=== PATIENT | female | born 1955 | race African-American/Black ===

== ENCOUNTER 2017-03-26 18:50 | Inpatient (IN) | payer MEDICARE ==
[~2017-03-26] VITALS: Ht 157.5 cm; Wt 84.2 kg
[~2017-03-26 18:50] MED LIST: ALPHAGAN P0.1 % OU; AMLODIPINE5 MG PO; ASPIRIN EC81 MG PO; ASPIRIN81 MG OR; ATENOLOL50 MG PO; BACTRIM DS1 TAB PO; BENICAR20 MG PO; CIPROFLOXACN500 MG PO; CLEOCIN150 MG OR; CLOPIDOGREL75 MG PO; CRESTOR20 MG PO; CYCLOBENZAPR10 MG PO; FISH OIL1000 MG PO; FLEXERIL OR; FLEXERIL PO; GABAPENTIN300 MG PO; GLIPIZIDE ER5 MG OR; GLUCOPHAGE1000 MG OR; GLYBURIDE5 MG OR; GLYBURIDE5 MG PO; LANTUS100 MG/ML SC; LEVEMIR1000 UNITS SC; LIPITOR40 MG OR; LISINOPRIL10 MG; LISINOPRIL10 MG OR; LISINOPRIL20 MG PO; LORTAB 7.5-3251 TAB PO; LORTAB5 PO; LOSARTAN POT50 MG PO; LOSARTAN POTASS50 MG PO; LOVASTATIN40 MG OR; METFORMIN500 M1 PO; METFORMIN500 MG PO; NAPROSYN500 MG PO; NOVOLOG100 IU/1 M SC; OMEGA-3 FISH1000 MG PO; OMEPRAZOLE20 M1 PO; OMEPRAZOLE20 MG PO; ONDANSETRON4 MG PO; PANTOPRAZOLE SO40 MG PO; PLETAL100 MG PO; PRAVACHOL20 MG PO; PRAVASTATIN20 MG PO; PREVACID30 M1 PO; SIMVASTATIN80 MG OR; SULFAMETHOXAZOL1 TA1 PO; TORADOL PO; TRAMADOL HCL50 MG PO; TRESIBA FL100 UNIT/M SC; ULTRAM50 M1 PO; WARFARIN5 MG PO; ZETIA10 MG OR; ZITHROMAX250 MG PO; ZOFRAN ODT4 MG PO; ZOFRAN4 MG/TAB PO
[2017-03-26] MEDS ORDERED: LANTUS100 UNIT/M SC (19:03)
[2017-03-26 19:51] LABS: HEMATOCRIT 41.8 % (37.0-47.0); HEMOGLOBIN 14.1 g/dl (12.0-16.0); IMMATURE GRANULOCYTES 0.4 % (0.0-1.0); MEAN CELL VOLUME 90.9 fL CALC (80.0-100.0); MEAN CORPUSCULAR HGB 30.7 pG CALC (26.0-32.0); MEAN CORPUSCULAR HGB CONC 33.7 g/L CALC (32.0-36.0); NEUT# 7.92 thou/uL (2.00-7.15); RED BLOOD COUNT 4.6 mill/uL (4.20-5.60); RED CELL DISTRI WIDTH 12.6 % (11.5-15.5)
[2017-03-26 20:04] LABS: ALBUMIN 4.3 g/dL (3.2-5.0); BILIRUBIN, TOTAL 0.6 mg/dL (0.0-1.4); CALCIUM 9.5 mg/dL (8.4-10.2); CREATININE 1.2 mg/dL (0.5-1.0); POTASSIUM 4.9 mmol/l (3.5-5.1)
[2017-03-26 21:20] VITALS: BP 161/80
[2017-03-27 03:50] VITALS: BP 152/81
[2017-03-27 05:28] LABS: ANION GAP 14 (6-22 (CALC)); BUN 16 mg/dL (8-23); BUN/CREATININE RATIO 20 (12-20 (CALC)); CALCIUM 9.1 mg/dL (8.4-10.2); CARBON DIOXIDE 22 mmol/l (22-30); CHLORIDE 106 mmol/l (95-108); CREATININE 0.8 mg/dL (0.5-1.0); GFR > 60 ML/MIN (>=60 (CALC)); GFR FOR AFR.AMER. > 60 ML/MIN (>=60 (CALC)); GLUCOSE 222 mg/dL (82-115); POTASSIUM 4.5 mmol/l (3.5-5.1); SODIUM 137 mmol/l (137-146)
[2017-03-27 05:34] LABS: HEMATOCRIT 38.3 % (37.0-47.0); HEMOGLOBIN 12.7 g/dl (12.0-16.0); IMMATURE GRANULOCYTES 0.3 % (0.0-1.0); MEAN CELL VOLUME 92.1 fL CALC (80.0-100.0); MEAN CORPUSCULAR HGB 30.5 pG CALC (26.0-32.0); MEAN CORPUSCULAR HGB CONC 33.2 g/L CALC (32.0-36.0); NEUT# 6.21 thou/uL (2.00-7.15); RED BLOOD COUNT 4.16 mill/uL (4.20-5.60); RED CELL DISTRI WIDTH 12.5 % (11.5-15.5)
[2017-03-27 07:36] VITALS: BP 169/65
[2017-03-27 10:24] LABS: CHOLESTEROL HDL RATIO 4.5 (<4.4 (CALC))
[2017-03-27 10:57] LABS: URINE BILIRUBIN - DIPSTICK NEGATIVE (NEGATIVE); URINE BLOOD DIPSTICK TRACE-INTACT (NEGATIVE); URINE COLOR YELLOW; URINE GLUCOSE - DIPSTICK 250 mg/dL (NEGATIVE); URINE KETONE NEGATIVE (NEGATIVE); URINE NITRITE - DIPSTICK NEGATIVE (Negative); URINE PH 5.5 (4.5-8.0); URINE PROTEIN - DIPSTICK NEGATIVE (NEG-TRACE); URINE SPECIFIC GRAVITY 1.015; URINE UROBILINOGEN - DIPSTICK 0.2 E.U./dL (0.2)
[2017-03-27 10:59] LABS: URINE CLARITY HAZY; URINE EPITHELIAL CELLS MODERATE EPI/hpf (0-FEW); URINE LEUK ESTERASE MODERATE (NEGATIVE); URINE RBC 0-2 RBC/hpf (0-5); URINE WBC 20-50 WBC/hpf (0-5)
[2017-03-27 11:00] LABS: URINE BACTERIA FEW hpf
[2017-03-27 14:31] VITALS: BP 157/61
[2017-03-27 15:32] VITALS: BP 139/94
[2017-03-27 19:30] VITALS: BP 161/60
[2017-03-28] VITALS (7 sets, daily range): BP systolic 150–190; BP diastolic 55–100
[2017-03-28 06:09] LABS: HEMATOCRIT 38.6 % (37.0-47.0); HEMOGLOBIN 12.9 g/dl (12.0-16.0); IMMATURE GRANULOCYTES 0.1 % (0.0-1.0); MEAN CELL VOLUME 92.1 fL CALC (80.0-100.0); MEAN CORPUSCULAR HGB 30.8 pG CALC (26.0-32.0); MEAN CORPUSCULAR HGB CONC 33.4 g/L CALC (32.0-36.0); NEUT# 3.1 thou/uL (2.00-7.15); RED BLOOD COUNT 4.19 mill/uL (4.20-5.60); RED CELL DISTRI WIDTH 12.4 % (11.5-15.5)
[2017-03-28 06:33] LABS: ANION GAP 12 (6-22 (CALC)); BUN 14 mg/dL (8-23); BUN/CREATININE RATIO 18 (12-20 (CALC)); CALCIUM 9.2 mg/dL (8.4-10.2); CARBON DIOXIDE 25 mmol/l (22-30); CHLORIDE 105 mmol/l (95-108); CREATININE 0.8 mg/dL (0.5-1.0); GFR > 60 ML/MIN (>=60 (CALC)); GFR FOR AFR.AMER. > 60 ML/MIN (>=60 (CALC)); GLUCOSE 124 mg/dL (82-115); POTASSIUM 4.6 mmol/l (3.5-5.1); SODIUM 137 mmol/l (137-146)
[2017-03-28] MEDS ORDERED: DOXYCYCL HYC100 MG PO (16:03)
== END 2017-03-28 17:21 | disposition home health service (06) | DRG 638 ==
LOC: ENPENDDIS → ED 18:50 → ED-I 20:18 → ED 20:39 → MS2 20:40
PROVIDERS: Emergency Medicine; Nurse Practitioner Family; ADMIT Internal Medicine; ATTEND Internal Medicine
PROC: 0X940ZZ Drainage of Right Axilla, Open Approach (ICD-10-PCS; principal; 2017-03-26)
DX: E11.628 Type 2 diabetes mellitus with other skin complications (principal); L02.411 Cutaneous abscess of right axilla; N17.9 Acute kidney failure, unspecified; B95.62 Methicillin resistant Staphylococcus aureus infection as the cause of diseases classified elsewhere; E87.1 Hypo-osmolality and hyponatremia; E11.65 Type 2 diabetes mellitus with hyperglycemia; I10 Essential (primary) hypertension; I25.10 Atherosclerotic heart disease of native coronary artery without angina pectoris; F17.210 Nicotine dependence, cigarettes, uncomplicated; E11.69 Type 2 diabetes mellitus with other specified complication; E78.5 Hyperlipidemia, unspecified; Z79.4 Long term (current) use of insulin

== ENCOUNTER 2017-07-12 21:56 | Inpatient (IN) | payer MEDICARE ==
[~2017-07-12] VITALS: Ht 157.5 cm; Wt 87.2 kg
[~2017-07-12 21:56] MED LIST changes: +DOXYCYCL HYC100 MG PO; +LANTUS100 UNIT/M SC
[2017-07-12] MEDS ORDERED: TRESIBA FL100 UNIT/M SC (22:21)
[2017-07-12] MEDS ORDERED: WELLBUTRIN SR150 MG PO (22:21)
[2017-07-12] MEDS ORDERED: MULTIVITAMI1 PO (22:23)
[2017-07-12 22:57] LABS: HEMATOCRIT 42.5 % (37.0-47.0); HEMOGLOBIN 14.4 g/dl (12.0-16.0); IMMATURE GRANULOCYTES 0.3 % (0.0-1.0); MEAN CORPUSCULAR HGB 30.8 pG CALC (26.0-32.0); MEAN CORPUSCULAR HGB CONC 33.9 g/L CALC (32.0-36.0); NEUT# 6.8 thou/uL (2.00-7.15); RED BLOOD COUNT 4.67 mill/uL (4.20-5.60); RED CELL DISTRI WIDTH 12.7 % (11.5-15.5)
[2017-07-12 23:00] LABS: URINE BILIRUBIN - DIPSTICK NEGATIVE (NEGATIVE); URINE BLOOD DIPSTICK TRACE-INTACT (NEGATIVE); URINE CLARITY SL CLOUDY; URINE COLOR YELLOW; URINE GLUCOSE - DIPSTICK >=1000 mg/dL (NEGATIVE); URINE KETONE NEGATIVE (NEGATIVE); URINE LEUK ESTERASE NEGATIVE (NEGATIVE); URINE NITRITE - DIPSTICK NEGATIVE (Negative); URINE PH 7.5 (4.5-8.0); URINE PROTEIN - DIPSTICK 30 mg/dL (NEG-TRACE); URINE SPECIFIC GRAVITY 1.015; URINE UROBILINOGEN - DIPSTICK 0.2 E.U./dL (0.2)
[2017-07-12 23:09] LABS: URINE SQUAMOUS EPITHELIAL CELL FEW EPI/hpf (0-FEW)
[2017-07-12 23:10] LABS: URINE MUCUS FEW hpf (NONE-FEW)
[2017-07-12 23:11] LABS: ALBUMIN 4.4 g/dL (3.2-5.0); ALKALINE PHOSPHATASE 165 u/l (38-126); AMYLASE 66 u/l (30-110); ANION GAP 15 (6-22 (CALC)); BILIRUBIN, TOTAL 0.4 mg/dL (0.0-1.4); BUN 17 mg/dL (8-23); BUN/CREATININE RATIO 17 (12-20 (CALC)); CALCIUM 9.7 mg/dL (8.4-10.2); CARBON DIOXIDE 29 mmol/l (22-30); CHLORIDE 98 mmol/l (95-108); GFR 56 ML/MIN (>=60 (CALC)); GFR FOR AFR.AMER. > 60 ML/MIN (>=60 (CALC)); GLUCOSE 402 mg/dL (82-115); LIPASE 439 u/l (23-300); SGOT/AST 28 u/l (9-36); SGPT/ALT 39 u/l (11-66); SODIUM 139 mmol/l (137-146)
[2017-07-12 23:22] LABS: MYOGLOBIN 29 ng/mL (0 - 62)
[2017-07-13] VITALS (14 sets, daily range): BP systolic 135–198; BP diastolic 56–91
== END 2017-07-13 09:30 | disposition short-term general hospital (02) | DRG 280 ==
LOC: ED 21:56 → ED-I 07-13 00:30 → ED 07-13 00:56 → MS2 07-13 00:57 → ICU 07-13 06:45 → MS2 07-13 06:54 → ICU 07-13 06:54
PROVIDERS: Emergency Medicine; ADMIT Internal Medicine; ATTEND Internal Medicine
DX: I21.4 Non-ST elevation (NSTEMI) myocardial infarction (principal); K85.90 Acute pancreatitis without necrosis or infection, unspecified; E11.42 Type 2 diabetes mellitus with diabetic polyneuropathy; E11.51 Type 2 diabetes mellitus with diabetic peripheral angiopathy without gangrene; D75.1 Secondary polycythemia; I10 Essential (primary) hypertension; J44.9 Chronic obstructive pulmonary disease, unspecified; I25.10 Atherosclerotic heart disease of native coronary artery without angina pectoris; E78.5 Hyperlipidemia, unspecified; F17.210 Nicotine dependence, cigarettes, uncomplicated; G47.33 Obstructive sleep apnea (adult) (pediatric); Z95.820 Peripheral vascular angioplasty status with implants and grafts; Z91.19 Patient's noncompliance with other medical treatment and regimen
CPT/HCPCS: J1650; S0164

== ENCOUNTER 2018-01-26 02:44 | Inpatient (IN) | payer MEDICARE ==
[~2018-01-26] VITALS: Ht 157.5 cm; Wt 86.8 kg
[2018-01-26] VITALS (15 sets, daily range): BP systolic 110–200; BP diastolic 53–103
[~2018-01-26 02:44] MED LIST changes: +MULTIVITAMI1 PO; +WELLBUTRIN SR150 MG PO
[2018-01-26] MEDS ORDERED: PRAVASTATIN20 MG PO (03:07)
[2018-01-26] MEDS ORDERED: LEVEMIR100 UNIT/M SC (03:08)
[2018-01-26 03:10] LABS: HEMATOCRIT 41.5 % (37.0-47.0); HEMOGLOBIN 13.7 g/dl (12.0-16.0); IMMATURE GRANULOCYTES 0.3 % (0.0-1.0); MEAN CELL VOLUME 93.7 fL CALC (80.0-100.0); MEAN CORPUSCULAR HGB 30.9 pG CALC (26.0-32.0); NEUT# 3.77 thou/uL (2.00-7.15); RED BLOOD COUNT 4.43 mill/uL (4.20-5.60); RED CELL DISTRI WIDTH 13.4 % (11.5-15.5)
[2018-01-26 03:19] LABS: ALBUMIN 3.9 g/dL (3.2-5.0); ALKALINE PHOSPHATASE 120 u/l (38-126); BILIRUBIN, TOTAL 0.3 mg/dL (0.0-1.4); BUN 17 mg/dL (8-23); BUN/CREATININE RATIO 23 (12-20 (CALC)); CREATININE 0.7 mg/dL (0.5-1.0); GFR > 60 ML/MIN (>=60 (CALC)); GFR FOR AFR.AMER. > 60 ML/MIN (>=60 (CALC)); POTASSIUM 4.3 mmol/l (3.5-5.1); SGOT/AST 41 u/l (9-36); SGPT/ALT 46 u/l (11-66); SODIUM 141 mmol/l (137-146); TOTAL PROTEIN 7.5 g/dL (6.3-8.2)
[2018-01-26 03:20] LABS: ANION GAP 15 (6-22 (CALC)); CARBON DIOXIDE 19 mmol/l (22-30); CHLORIDE 111 mmol/l (95-108)
[2018-01-26 03:31] LABS: INTERNATIONAL NORMALIZED RATIO 0.9 RATIO (0.7-1.3); PROTHROMBIN TIME 10.2 SECONDS (9.0-12.5)
[2018-01-26 03:32] LABS: MYOGLOBIN 20 ng/mL (0 - 62)
[2018-01-26 04:47] LABS: URINE BILIRUBIN - DIPSTICK NEGATIVE (NEGATIVE); URINE BLOOD DIPSTICK SMALL (NEGATIVE); URINE CLARITY SL CLOUDY; URINE COLOR YELLOW; URINE GLUCOSE - DIPSTICK >=1000 mg/dL (NEGATIVE); URINE KETONE NEGATIVE (NEGATIVE); URINE LEUK ESTERASE TRACE (NEGATIVE); URINE NITRITE - DIPSTICK NEGATIVE (Negative); URINE PROTEIN - DIPSTICK 100 mg/dL (NEG-TRACE); URINE UROBILINOGEN - DIPSTICK 0.2 E.U./dL (0.2)
[2018-01-26 04:52] LABS: URINE BACTERIA FEW hpf; URINE MUCUS MODERATE hpf (NONE-FEW); URINE SQUAMOUS EPITHELIAL CELL MODERATE EPI/hpf (0-FEW)
[2018-01-27] VITALS (8 sets, daily range): BP systolic 121–172; BP diastolic 47–95
[2018-01-27 05:23] LABS: HEMATOCRIT 41.7 % (37.0-47.0); HEMOGLOBIN 13.8 g/dl (12.0-16.0); MEAN CELL VOLUME 94.3 fL CALC (80.0-100.0); MEAN CORPUSCULAR HGB 31.2 pG CALC (26.0-32.0); MEAN CORPUSCULAR HGB CONC 33.1 g/L CALC (32.0-36.0); RED BLOOD COUNT 4.42 mill/uL (4.20-5.60); RED CELL DISTRI WIDTH 13.4 % (11.5-15.5)
[2018-01-27 05:32] LABS: ANION GAP 16 (6-22 (CALC)); BUN 15 mg/dL (8-23); BUN/CREATININE RATIO 22 (12-20 (CALC)); CARBON DIOXIDE 24 mmol/l (22-30); CHLORIDE 107 mmol/l (95-108); CREATININE 0.7 mg/dL (0.5-1.0); GFR > 60 ML/MIN (>=60 (CALC)); GFR FOR AFR.AMER. > 60 ML/MIN (>=60 (CALC)); POTASSIUM 3.7 mmol/l (3.5-5.1); SODIUM 143 mmol/l (137-146)
[2018-01-28 03:00] VITALS: BP 139/78
[2018-01-28 04:56] LABS: HEMATOCRIT 40.1 % (37.0-47.0); HEMOGLOBIN 13.3 g/dl (12.0-16.0); MEAN CELL VOLUME 93.5 fL CALC (80.0-100.0); MEAN CORPUSCULAR HGB CONC 33.2 g/L CALC (32.0-36.0); RED BLOOD COUNT 4.29 mill/uL (4.20-5.60); RED CELL DISTRI WIDTH 13.4 % (11.5-15.5)
[2018-01-28 04:58] LABS: ANION GAP 14 (6-22 (CALC)); BUN 21 mg/dL (8-23); BUN/CREATININE RATIO 25 (12-20 (CALC)); CARBON DIOXIDE 25 mmol/l (22-30); CHLORIDE 106 mmol/l (95-108); CREATININE 0.8 mg/dL (0.5-1.0); GFR > 60 ML/MIN (>=60 (CALC)); GFR FOR AFR.AMER. > 60 ML/MIN (>=60 (CALC)); MAGNESIUM 1.7 mg/dL (1.6-2.3); POTASSIUM 4.2 mmol/l (3.5-5.1); SODIUM 141 mmol/l (137-146)
[2018-01-28 08:12] VITALS: BP 142/74
[2018-01-28] MEDS ORDERED: LASIX 40 MG TAB40 MG PO (12:30)
[2018-01-28] MEDS ORDERED: LOPRESSOR25 MG PO (12:30)
[2018-01-28] MEDS ORDERED: AMLODIPINE BESYL5 MG PO (12:30)
[2018-01-28 12:39] VITALS: BP 150/85
[2018-01-28 12:42] VITALS: BP 159/64
== END 2018-01-28 13:53 | disposition home or self-care (01) | DRG 304 ==
LOC: ED 02:44 → ED-I 03:55 → ED 04:10 → ICU 04:11 → MS2 01-27 17:40
PROVIDERS: Emergency Medicine; Internal Medicine; ADMIT Internal Medicine; ATTEND Internal Medicine
DX: I16.0 Hypertensive urgency (principal); I50.33 Acute on chronic diastolic (congestive) heart failure; E11.42 Type 2 diabetes mellitus with diabetic polyneuropathy; E11.65 Type 2 diabetes mellitus with hyperglycemia; Q23.1 Congenital insufficiency of aortic valve; I11.0 Hypertensive heart disease with heart failure; I25.10 Atherosclerotic heart disease of native coronary artery without angina pectoris; F17.210 Nicotine dependence, cigarettes, uncomplicated; E78.5 Hyperlipidemia, unspecified; G47.33 Obstructive sleep apnea (adult) (pediatric); Z79.4 Long term (current) use of insulin
CPT/HCPCS: J1650

== ENCOUNTER 2018-10-17 22:23 | Emergency (ER) | payer MEDICARE ==
[~2018-10-17 22:23] MED LIST changes: +AMLODIPINE BESYL5 MG PO; +LASIX 40 MG TAB40 MG PO; +LEVEMIR100 UNIT/M SC; +LOPRESSOR25 MG PO
== END 2018-10-17 22:45 | disposition expired ==
LOC: ED 22:23
PROC: 5A2204Z Restoration of Cardiac Rhythm, Single (ICD-10-PCS; principal; 2018-10-17)
PROC: 5A12012 Performance of Cardiac Output, Single, Manual (ICD-10-PCS; 2018-10-17)
DX: I49.01 Ventricular fibrillation (principal); I10 Essential (primary) hypertension; I25.10 Atherosclerotic heart disease of native coronary artery without angina pectoris; E11.9 Type 2 diabetes mellitus without complications; F17.200 Nicotine dependence, unspecified, uncomplicated; Z95.5 Presence of coronary angioplasty implant and graft